=== PATIENT | female | born 1995 | race Caucasian/White ===

== ENCOUNTER 2023-05-09 21:01 | Emergency (ER) | payer OTHER ==
[~2023-05-09] VITALS: Ht 162.6 cm; Wt 95.3 kg
[2023-05-09 22:00] VITALS: BP 120/60; PULSE 65; RESP 17; TEMP 97.8; O2SAT 100
[2023-05-09 23:54] LABS: APPEARANCE,URINE CLOUDY (CLEAR); BILIRUBIN,URINE 1+ (NEGATIVE); BLOOD, URINE 3+ (NEGATIVE); COLOR,URINE RED (YELLOW); LEUKOCYTE ESTERASE ,URINE 1+ (NEGATIVE); NITRITE, URINE POSITIVE (NEGATIVE); PROTEIN,URINE 2+ (NEGATIVE); UGLUCOSE NEGATIVE (NEGATIVE)
[2023-05-09 23:59] LABS: BACTERIA,URINE 10-30 (MOD) /HPF (None Seen); ICTOTEST POSITIVE (NEGATIVE); MUCUS,URINE 1+ /LPF (None Seen); RBC,URINE TOO NUMEROUS TO COUN /HPF (0-5); SQUAMOUS EPITHELIAL CELL,UR 0-3 (FEW) /LPF (0-3 (FEW))
[2023-05-10] MEDS ORDERED: CEPH-588 PO (00:08)
[2023-05-10] MEDS ORDERED: ACET-10509 PO (00:11)
[2023-05-10] MEDS ORDERED: IBUP-2213 PO (00:11)
[2023-05-10] MEDS ORDERED: PHEN-1877 PO (00:11)
[2023-05-10] MEDS ORDERED: cefTRIAXone 500 MG VIAL ONE ×2 (00:24)
[2023-05-10] MEDS ORDERED: LIDOCAINE MPF 1% 5 ML ONE (00:25)
[2023-05-10] MEDS: LIDOCAINE 5% 1 EA PATCH TP ONE (00:45)
[2023-05-10] MEDS: IBUPROFEN 800 MG TAB PO ONE (00:45)
[2023-05-10] MEDS: cefTRIAXone 500 MG in LIDOCAINE MPF 1% 1 ML IM ONE (00:45)
[2023-05-10 01:00] VITALS: BP 120/60; PULSE 65; RESP 17; TEMP 97.8; O2SAT 100
== END 2023-05-10 01:42 | disposition home or self-care (01) ==
LOC: MED 21:01
DX: N12 Tubulo-interstitial nephritis, not specified as acute or chronic (principal); Z79.899 Other long term (current) drug therapy
CPT/HCPCS: 81001; 81025; 87086; 96372; 99283; J0696; J2001